=== PATIENT | female | born 1975 | race Two or more races ===

== ENCOUNTER 2020-10-15 06:20 | Day surgery (SDC) | payer OTHER | END 2020-10-15 10:35 | disposition home or self-care (01) | LOC: AMB-ENDOS 06:20 | PROVIDERS: ATTEND Surgery | DX: K62.89 Other specified diseases of anus and rectum (principal); K64.8 Other hemorrhoids; Z20.822 Contact with and (suspected) exposure to COVID-19 ==

== ENCOUNTER 2020-12-18 12:00 | Inpatient (IN) | payer OTHER ==
[~2020-12-18] VITALS: Ht 170.2 cm; Wt 108.9 kg
[2020-12-18] MEDS ORDERED: ZIPSOR25 MG PO (14:50)
[2020-12-18] MEDS ORDERED: SKELAXIN800 MG PO (14:50)
[2020-12-18] MEDS ORDERED: VITAMIN D PO (14:51)
[2020-12-18] MEDS ORDERED: FOLIC AC PO (14:51)
[2020-12-24] MEDS ORDERED: MECLIZINE HCL25 MG (08:10)
[2020-12-24] MEDS ORDERED: PANTOPRAZOLE SO40 MG (08:10)
[2020-12-24] MEDS ORDERED: CETIRIZINE HCL10 MG (08:10)
[2020-12-24] MEDS ORDERED: TAMSULOSIN HCL0.4 MG (08:10)
[2020-12-24] MEDS ORDERED: SIMVASTATIN40 MG (08:10)
[2020-12-24] MEDS ORDERED: LISINOPRIL40 MG (08:10)
[2020-12-24] MEDS ORDERED: VITAMIN D310 MC4 (08:11)
[2020-12-24] MEDS ORDERED: FOLIC ACID1 MG PO (08:11)
[2020-12-27] MEDS ORDERED: HYOSCYAMINE0.125 M1 SL (08:47)
[2020-12-27] MEDS ORDERED: OXYC1TAB9 PO (08:48)
[2020-12-27] MEDS ORDERED: INTESTINEX680 M1 PO (08:48)
== END 2020-12-27 13:35 | disposition home or self-care (01) | DRG 331 ==
LOC: O/R 12-23 09:46 → SURH 12-23 11:45
PROVIDERS: ADMIT Surgery; ATTEND Surgery
PROC: 0DTN4ZZ Resection of Sigmoid Colon, Percutaneous Endoscopic Approach (ICD-10-PCS; 2020-12-23)
PROC: 3E0F7SF Introduction of Other Gas into Respiratory Tract, Via Natural or Artificial Opening (ICD-10-PCS; 2020-12-23)
PROC: 0DTP4ZZ Resection of Rectum, Percutaneous Endoscopic Approach (ICD-10-PCS; principal; 2020-12-23 11:45)
DX: K57.30 Diverticulosis of large intestine without perforation or abscess without bleeding (principal); K62.89 Other specified diseases of anus and rectum; R19.4 Change in bowel habit